=== PATIENT | female | born 1980 | race Caucasian/White ===

== ENCOUNTER 2018-08-07 14:19 | Emergency (ER) | payer MEDICAID ==
[~2018-08-07] VITALS: Ht 160 cm; Wt 53.5 kg
[2018-08-07 14:34] VITALS: BP 128/89; Ht 160 cm; Wt 53.5 kg
== END 2018-08-07 16:10 | disposition left against medical advice (07) ==
LOC: ED 14:19
DX: Z53.21 Procedure and treatment not carried out due to patient leaving prior to being seen by health care provider (principal)